=== PATIENT | male | born 1985 | race Caucasian/White ===

== ENCOUNTER 2022-04-11 10:49 | Emergency (ER) | payer OTHER ==
[~2022-04-11] VITALS: Ht 175.3 cm; Wt 72.7 kg
[2022-04-11] MEDS ORDERED: LIDOCAINE/PF 2% 5 ML VIAL IM ONE (10:50)
[2022-04-11] MEDS ORDERED: PROPOFOL 1% 20 ML VIAL IVP ONE (10:50)
[2022-04-11] MEDS ORDERED: GLUCAGON,HUMAN RECOMBINANT 1 MG VIAL IVP ONE (12:30)
[2022-04-11] MEDS ORDERED: LORazepam 2 MG/ML VIAL IVP ONE (12:30)
[2022-04-11] MEDS ORDERED: ONDANSETRON HCL 4 MG/2 ML VIAL IVP ONE (12:30)
[2022-04-11 12:43] LABS: BASOPHILS % (AUTO) 0.4 % (0.0-2.0); EOSINOPHILS % (AUTO) 3.9 % (1.0-6.0); HEMATOCRIT 44.7 % (41-53); LYMPHOCYTES # (AUTO) 1.2 K/uL (1.0-4.8); LYMPHOCYTES % (AUTO) 14.8 % (22.0-44.0); MEAN CORPUSCULAR HEMOGLOBIN 29.6 pg (26.0-34.0); MEAN CORPUSCULAR HGB CONC 33.5 G/dL (31.0-37.0); MEAN CORPUSCULAR VOLUME 89 fL (80-100); MONOCYTES # (AUTO) 0.7 K/uL (0.1-1.0); MONOCYTES % (AUTO) 8.6 % (2.0-9.0); NEUTROPHILS # (AUTO) 5.9 K/uL (1.8-7.7); NEUTROPHILS % (AUTO) 72.3 % (40.0-70.0); PLATELET COUNT (AUTO) 234 K/uL (150-450); RED BLOOD CELL COUNT(AUTO) 5.06 MIL/uL (4.50-5.90); RED CELL DISTRIBUTION WIDTH 13.8 % (11.5-14.5)
[2022-04-11 12:51] LABS: ANION GAP 6 mmol/L (8-16); CALCIUM, TOTAL 9.2 mg/dL (8.8-10.5); CARBON DIOXIDE 31 mmol/L (22-29); CHLORIDE 107 mmol/L (98-107); CREATININE 1.07 mg/dL (0.60-1.30); GLOMERULAR FILTR. RATE CALC > 60 mL/min (>60); GLUCOSE,RANDOM 92 mg/dL (70-110); SODIUM SERUM 144 mmol/L (136-145); UREA NITROGEN, BLOOD 13 mg/dL (7-18)
[2022-04-11 12:57] LABS: ALANINE AMINOTRANSFERASE 54 U/L (12-78); ALBUMIN 3.6 g/dL (3.4-5.0); ALKALINE PHOSPHATASE 91 U/L (46-116); ASPARTATE AMINOTRANSFERASE 40 U/L (15-37); BILIRUBIN,TOTAL 0.3 mg/dL (0.1-1.0); TOTAL PROTEIN, SERUM 7.3 g/dL (6.4-8.2)
[2022-04-11 13:23] VITALS: BP 122/74
[2022-04-11] MEDS ORDERED: SODIUM CHLORIDE 0.9% 1,000 ML ONE ×2 (14:23→17:17)
[2022-04-11] MEDS ORDERED: MIDAZOLAM HCL 5 MG/ML VIAL ONE (17:10)
[2022-04-11] MEDS ORDERED: FentaNYL CITRATE PF 100 MCG/2 ML VIAL ONE (17:11)
== END 2022-04-11 20:13 | disposition home or self-care (01) ==
LOC: EMS 10:49
DX: T18.128A Food in esophagus causing other injury, initial encounter (principal); F17.210 Nicotine dependence, cigarettes, uncomplicated; Z98.890 Other specified postprocedural states; X58.XXXA Exposure to other specified factors, initial encounter; Y93.89 Activity, other specified; Y92.89 Other specified places as the place of occurrence of the external cause; Y99.8 Other external cause status
CPT/HCPCS: 36415; 43247; 80053; 85025; 88300; 96374; 96375; 99285; C1769; J1610; J2060; J2250; J2405; J2704; J3010; J3490; J7030; Z7610 ×2; 99284

== ENCOUNTER 2025-01-18 08:19 | Emergency (ER) | payer OTHER ==
[~2025-01-18] VITALS: Ht 172.7 cm; Wt 81.8 kg
[~2025-01-18 08:19] MED LIST: ALBU18HF12 IH
[2025-01-18 09:00] VITALS: TEMP 98.3
[2025-01-18] MEDS ORDERED: BUPR1FIL19 SL (09:27)
[2025-01-18] MEDS ORDERED: CLON0.5T4 PO (09:27)
[2025-01-18] MEDS ORDERED: OMEP20CA12 PO (09:27)
[2025-01-18] MEDS ORDERED: QUET200T30 PO (09:27)
[2025-01-18] MEDS: QUEtiapine FUMARATE 100 MG TABLET PO ONE (10:46)
[2025-01-18] MEDS: LORazepam 2 MG TABLET PO ONE (10:46)
[2025-01-18 11:15] VITALS: BP 125/74; PULSE 65; RESP 16; O2SAT 97
[2025-01-18] MEDS ORDERED: QUET200T PO (11:29)
[2025-01-18] MEDS ORDERED: TRIA15CR49 TP (11:29)
[2025-01-18] MEDS ORDERED: LORA1TAB25 PO (11:29)
[2025-01-18] MEDS ORDERED: DIPH50CA37 PO (11:29)
[2025-01-18] MEDS ORDERED: CEPH-558 PO (11:29)
[2025-01-23] MEDS ORDERED: ALBU90AE IH (20:16)
[2025-01-23] MEDS ORDERED: UMEC1DIS IH (20:16)
[2025-01-23] MEDS ORDERED: GALC120P SQ (20:16)
[2025-01-23] MEDS ORDERED: CHLO473M6 PO (21:07)
== END 2025-01-18 12:03 | disposition home or self-care (01) ==
LOC: EMS 08:19
DX: F41.1 Generalized anxiety disorder (principal); F25.9 Schizoaffective disorder, unspecified; G43.909 Migraine, unspecified, not intractable, without status migrainosus; F12.90 Cannabis use, unspecified, uncomplicated; F17.210 Nicotine dependence, cigarettes, uncomplicated; Z91.018 Allergy to other foods; Z79.899 Other long term (current) drug therapy
CPT/HCPCS: 99283

== ENCOUNTER → 2025-01-23 | Emergency (ER) | payer OTHER ==
[~2025-01-23] VITALS: Ht 172.7 cm; Wt 81.8 kg
[~2025-01-23] MED LIST changes: +ALBU90AE IH; +BUPR1FIL19 SL; +CEPH-558 PO; +CHLO473M6 PO; +CLON0.5T4 PO; +DIPH50CA37 PO; +GALC120P SQ; +LORA1TAB25 PO; +OMEP20CA12 PO; +QUET200T PO; +QUET200T30 PO; +TRIA15CR49 TP; +UMEC1DIS IH
[2025-01-23 20:10] VITALS: TEMP 98.6
[2025-01-23 20:31] LABS: COVID AG,FIA SOURCE NASAL SWAB
[2025-01-23 20:36] LABS: PH,URINE DRUG SCREEN 7.5 (5.0-8.0)
[2025-01-23 20:44] LABS: AMPHET/METH SCREEN,URINE NEGATIVE (NEGATIVE); BARBITURATE SCREEN, URINE NEGATIVE (NEGATIVE); BENZODIAZEPINES SCREEN,URINE NEGATIVE (NEGATIVE); CANNABINOID SCREEN,URINE POSITIVE (NEGATIVE); COCAINE SCREEN,URINE NEGATIVE (NEGATIVE); METHADONE SCREEN, URINE NEGATIVE (NEGATIVE); OPIATE SCREEN,URINE NEGATIVE (NEGATIVE); PHENCYCLIDINE SCREEN,URINE NEGATIVE (NEGATIVE)
[2025-01-23 20:46] LABS: ALCOHOL, URINE DRUG SCREEN NEGATIVE (NEGATIVE)
[2025-01-23 20:52] LABS: INFLUENZA TYPE A NEGATIVE FOR TYPE A (NEGATIVE); INFLUENZA TYPE B NEGATIVE FOR TYPE B (NEGATIVE); SARS-COV2 (COVID) ANTIGEN,FIA Negative (Negative)
[2025-01-23 21:30] VITALS: BP 118/75; PULSE 77; RESP 16; O2SAT 98
[2025-01-23] MEDS: LORazepam 0.5 MG TABLET PO ONE (21:30)
== END | disposition home or self-care (01) ==
LOC: EMS 20:00
DX: J35.8 Other chronic diseases of tonsils and adenoids (principal); F41.9 Anxiety disorder, unspecified; F12.90 Cannabis use, unspecified, uncomplicated; F17.210 Nicotine dependence, cigarettes, uncomplicated; J45.909 Unspecified asthma, uncomplicated; Z79.899 Other long term (current) drug therapy; Z20.822 Contact with and (suspected) exposure to COVID-19
CPT/HCPCS: 71045; 80307; 87804; 99284; 99406

== ENCOUNTER 2025-02-24 10:53 | Emergency (ER) | payer OTHER ==
[~2025-02-24] VITALS: Ht 172.7 cm; Wt 77.3 kg
[~2025-02-24 10:53] MED LIST changes: -ALBU18HF12 IH; -QUET200T30 PO
[2025-02-24 11:00] VITALS: BP 115/98; PULSE 78; RESP 18; TEMP 97.9; O2SAT 98
[2025-02-24] MEDS: ACETAMINOPHEN 500 MG TABLET PO ONE (12:00)
[2025-02-24] MEDS: TraMADol HCL 50 MG TABLET PO ONE (12:00)
[2025-02-24] MEDS: AMOX TR/POT CLAV 875 MG/125 MG TABLET PO ONE (12:00)
[2025-02-24] MEDS ORDERED: ACET-66 PO (12:13)
[2025-02-24] MEDS ORDERED: AMOX-457 PO (12:13)
[2025-02-24] MEDS ORDERED: TRAM50TA5 PO (12:13)
== END 2025-02-24 12:38 | disposition home or self-care (01) ==
LOC: EMS 10:58
DX: K05.10 Chronic gingivitis, plaque induced (principal); F12.90 Cannabis use, unspecified, uncomplicated; F17.210 Nicotine dependence, cigarettes, uncomplicated; Z91.018 Allergy to other foods; Z79.899 Other long term (current) drug therapy
CPT/HCPCS: 99284; Z7502; Z7610

== ENCOUNTER 2025-03-08 05:14 | Emergency (ER) | payer OTHER ==
[~2025-03-08] VITALS: Ht 170.2 cm; Wt 80.0 kg
[~2025-03-08 05:14] MED LIST changes: +ACET-66 PO; -ALBU90AE IH; +AMOX-457 PO; -CEPH-558 PO; -CHLO473M6 PO; -CLON0.5T4 PO; -DIPH50CA37 PO; -GALC120P SQ; -LORA1TAB25 PO; -QUET200T PO; +TRAM50TA5 PO; -TRIA15CR49 TP; -UMEC1DIS IH
[2025-03-08 05:15] VITALS: TEMP 97.7
[2025-03-08 07:20] VITALS: BP 133/86; PULSE 89; RESP 16; O2SAT 100
== END 2025-03-08 07:45 | disposition home or self-care (01) ==
LOC: EMS 05:19
DX: L30.9 Dermatitis, unspecified (principal); F41.9 Anxiety disorder, unspecified; F12.90 Cannabis use, unspecified, uncomplicated; Z91.018 Allergy to other foods; Z79.899 Other long term (current) drug therapy
CPT/HCPCS: 99283; Z7502